=== PATIENT | female | born 1965 | race Caucasian/White ===

== ENCOUNTER 2024-08-02 06:28 | Day surgery (SDC) | payer OTHER ==
[2024-08-01 09:39] LABS: HEMATOCRIT 39.7 % (36.0-45.00); HEMOGLOBIN 13.4 g/dL (12.0-15.00); MEAN CELL VOLUME 85.7 fL (80.00-100.00); MEAN CORPUSCULAR HGB CONC 33.8 g/dl (32.0-36.0); PLATELET COUNT 258 K/uL (150-450); RED BLOOD COUNT 4.63 M/uL (4.00-6.00); RED CELL DISTRIBUTION WIDTH 15.4 % (11.5-14.5)
[2024-08-01 09:53] LABS: PH,URINE 5.5 (5.0-8.0); URINE APPEARANCE Clear; URINE BILIRRUBIN Negative (NEGATIVE); URINE BLOOD Negative; URINE COLOR Yellow; URINE GLUCOSE Negative (NEGATIVE); URINE KETONE Negative (NEGATIVE); URINE LEUKOCYTE Small; URINE NITRATE Negative; URINE PROTEIN Negative (NEGATIVE); URINE UROBILINOGEN 0.2 E.U./dl
[2024-08-01 09:58] LABS: URINE EPITHELIAL CELLS 17.4 uL (0.0-38.8); URINE RBC 2.4 uL (0.0-20.8); URINE WBC 68.6 uL (0.0-23.2)
[2024-08-01 09:59] LABS: INR 1.01; PARTIAL THROMBOPLASTIN TIME 27.9 SECONDS (22.0-34.0)
[2024-08-01 10:01] LABS: URINE CAST 0.15 uL (0.0-1.40)
[2024-08-01 10:56] LABS: ALBUMIN 3.6 gm/dL (3.4-5.0); BILIRUBIN TOTAL 0.62 mg/dL (0.3-1.2); CALCIUM 9.2 mg/dL (8.5-10.1); CREATININE SERUM 0.67 mg/dL (0.55-1.02); GFR 90.09; GLOBULINA 3.8 G/DL (2.4-3.5); POTASSIUM 4.49 mEq/L (3.5-5.1); TOTAL PROTEIN 7.4 gm/dL (6.4-8.2)
[~2024-08-02 06:28] MED LIST: XYZAL5 MG
[2024-08-02] MEDS ORDERED: CHLORHEXIDINE GLUCONATE 120 ML BOTTLE TOP ONE (18:15)
[2024-08-02] MEDS ORDERED: CEFAZOLIN SODIUM 1,000 MG VIAL IV ONE (18:15)
== END 2024-08-02 20:00 | disposition home or self-care (01) ==
LOC: CIR.AMB 06:28
PROVIDERS: ATTEND Surgery
DX: D05.12 Intraductal carcinoma in situ of left breast (principal); N60.82 Other benign mammary dysplasias of left breast; D48.62 Neoplasm of uncertain behavior of left breast; Z91.013 Allergy to seafood; Z88.6 Allergy status to analgesic agent; Z91.012 Allergy to eggs